=== PATIENT | female | born 1970 | race Asian ===

== ENCOUNTER 2019-09-11 12:16 | Emergency (ER) | payer OTHER ==
[2019-09-11 12:42] VITALS: BP 163/93; PULSE 80; TEMP 98.4; BMI 31.2
--- NOTE | 2019-09-11 14:40 | PDOC ---
History of Present Illness - General Chief Complaint: Bite Stated Complaint: DOG BITE Time Seen by Provider: 09/11/19 14:28 - History of Present Illness Initial Comments: 09/11/19 14:33 CHIEF COMPLAINT: dog bite HISTORY OF PRESENT ILLNESS: 49 yo F with no PMH presents to ED s/p dog bite. Patient states she was playing with her own dog and got accidentally bit while the dog was trying to get the toy from her hand. Pt states that she is certain dog is utd with rabies vaccine. Patient reports getting tetanus vaccine within the last year. No recent travel or sick contacts. PAST MEDICAL HISTORY: Denies past medical history FAMILY HISTORY: Denies SOCIAL HISTORY: Denies tobacco, alcohol, illicit drug use. SURGICAL HISTORY: Denies ALLERGIES: aspirin, ibuprofen, sulfa REVIEW OF SYSTEMS General/Constitutional: Denies fever or chills. Denies weakness, weight change. HEENT: Denies change in vision. Denies ear pain or discharge. Denies sore throat. Cardiovascular: Denies chest pain or shortness of breath. Respiratory: Denies cough, wheezing, or hemoptysis. Gastrointestinal: Denies nausea, vomiting, diarrhea or constipation. Denies rectal bleeding. Genitourinary: Denies dysuria, frequency, or change in urination. Musculoskeletal: Denies neck/back pain. Skin: "My dog accidentally bit me." Neurologic: Denies headache, vertigo, loss of consciousness, or loss of sensation. Psychiatric: Denies depression or anxiety. PHYSICAL EXAM General Appearance: Well-appearing, appropriately dressed. No apparent distress. HEENT: EOMI, PERRLA, normal ENT inspection, normal voice, TMs normal, pharynx normal. No conjunctival pallor. No photophobia, scleral icterus. Neck: Supple. Trachea midline. No tenderness, rigidity, carotid bruit, stridor , lymphadenopathy, or thyromegaly. Respiratory/Chest: Lungs CTAB. No shortness of breath, chest tenderness, respiratory distress, accessory muscle use. No crackles, rales, rhonchi, stridor , wheezing, dullness Cardiovascular: RRR. S1, S2. No JVD, murmur, bradycardia, tachycardia. Vascular Pulses: Dorsalis-Pedis (R): 2+, Dorsalis-Pedis (L): 2+ Gastrointestinal/Abdominal: Normal bowel sounds. Abdomen soft, non-distended. No tenderness or rebound tenderness. No organomegaly, pulsatile mass, guarding , hernia, hepatomegaly, splenomegaly. Lymphatic: No adenopathy, tenderness. Musculoskeletal/Extremities: Normal inspection. FROM of all extremities, normal capillary refill. Pelvis Stable. No CVA tenderness. No tenderness to extremities, pedal edema, swelling, erythema or deformity. Integumentary: Small puncture wound to ulnar aspect of base of R index finger, no active bleeding. No tendon involvement, pulses 2+, full ROM to all fingers and hand. Appropriate color, dry, warm. No cyanosis, erythema, jaundice or rash Neurologic: ball warper tender II-XII intact. Fully oriented, alert. Appropriate mood/affect. Motor strength 5/5. No appreciable EOM palsy, facial droop or sensory deficit. Past History - Past Medical History Allergies/Adverse Reactions: Allergies Allergy/AdvReac Type Severity Reaction Status Date / Time aspirin Allergy Verified 09/11/19 14:09 ibuprofen Allergy Verified 09/11/19 14:09 Sulfa (Sulfonamide Allergy Verified 09/11/19 14:09 Antibiotics) Home Medications: Ambulatory Orders Amoxicillin/Potassium Clav [Augmentin 875-125 Tablet] 1 each PO BID #14 tablet 09/11/19 - Psycho Social/Smoking Cessation Hx Smoking History: Never smoked Have you smoked in the past 12 months: No Information on smoking cessation initiated: No Hx Alcohol Use: No Drug/Substance Use Hx: No *Physical Exam - Vital Signs Last Vital Signs Temp Pulse Resp BP Pulse Ox 98.4 F 80 16 163/93 100 09/11/19 12:40 09/11/19 12:40 09/11/19 12:40 09/11/19 12:40 09/11/19 12:40 Medical Decision Making - Medical Decision Making 09/11/19 16:19 49 yo F with no PMH presents to ED s/p dog bite. tdap utd. rabies immunoglobulin/vaccine not indicated. will treat empirically with augmentin. advised pt of signs and symptoms for return to ER; patient verbalized understanding and agrees to plan. Discharge - Discharge Information Problems reviewed: Yes Clinical Impression/Diagnosis: Dog bite Qualifiers: Encounter type: initial encounter Qualified Code(s): W54.0XXA - Bitten by dog, initial encounter Condition: Stable Disposition: HOME - Admission No - Additional Discharge Information Prescriptions: Amoxicillin/Potassium Clav [Augmentin 875-125 Tablet] 1 each PO BID #14 tablet - Follow up/Referral Referrals: Tone Scherer MD [Primary Care Provider] - - Patient Discharge Instructions Patient Printed Discharge Instructions: How to Care for a Domestic Animal Bite Additional Instructions: Please take medications as prescribed. Follow up Dr. Scherer within the next week for continued monitoring of your hand injury. If your hand becomes hot, red, swollen, or has purulent discharge, please return to the ER. - Post Discharge Activity Work/Back to School Note: Back to Work
== END 2019-09-11 14:41 | disposition home or self-care (01) ==
LOC: JER 12:16 → JERFT 12:16 → JER 14:41
DX: S61.459A Open bite of unspecified hand, initial encounter (principal); W54.0XXA Bitten by dog, initial encounter; Y93.89 Activity, other specified; Y92.89 Other specified places as the place of occurrence of the external cause; Z88.8 Allergy status to other drugs, medicaments and biological substances; Z88.2 Allergy status to sulfonamides
CPT/HCPCS: 99281-25

== ENCOUNTER 2022-12-03 23:27 | Emergency (ER) | payer OTHER ==
[2022-12-03 23:57] VITALS: BP 148/106; PULSE 96; RESP 18; TEMP 97.6; BMI 27.6
[2022-12-04] MEDS ORDERED: ACETAMINOPHEN 500 MG TABLET (FP) PO ONE (02:17)
[2022-12-04] MEDS ORDERED: ACETAMINOPHEN 500 MG TABLET (FP) ONE (02:20)
== END 2022-12-04 06:24 | disposition home or self-care (01) ==
LOC: MERGE 23:27 → JER 23:27
DX: J01.00 Acute maxillary sinusitis, unspecified (principal); R68.84 Jaw pain; Y04.0XXA Assault by unarmed brawl or fight, initial encounter
CPT/HCPCS: 70486-TC; 99284-25